=== PATIENT | female | born 1995 ===

== ENCOUNTER 2020-12-17 16:53 | Inpatient (IN) | payer OTHER ==
[~2020-12-17] VITALS: Ht 162.6 cm; Wt 2.3 kg
[2020-12-17] MEDS ORDERED: PRENATAL CAPLE1 EAC1 PO (18:00)
== END 2020-12-20 16:53 | disposition home or self-care (01) | DRG 788 ==
LOC: OB/GYN 16:53 → LDR 16:53 → OB/GYN 21:32
PROVIDERS: ADMIT Obstetrics & Gynecology; ATTEND Obstetrics & Gynecology
PROC: 4A1HXFZ Monitoring of Products of Conception, Cardiac Rhythm, External Approach (ICD-10-PCS; 2020-12-17)
PROC: 10D00Z1 Extraction of Products of Conception, Low, Open Approach (ICD-10-PCS; principal; 2020-12-17 18:00)
DX: O34.211 Maternal care for low transverse scar from previous cesarean delivery (principal); O14.05 Mild to moderate pre-eclampsia, complicating the puerperium; O36.5930 Maternal care for other known or suspected poor fetal growth, third trimester, not applicable or unspecified; Z3A.38 38 weeks gestation of pregnancy; Z37.0 Single live birth